=== PATIENT | female | born 1995 | race African-American/Black ===

== ENCOUNTER 2017-10-07 17:39 | Emergency (ER) | payer OTHER ==
[~2017-10-07] VITALS: Ht 152.4 cm; Wt 49.9 kg
[2017-10-07] MEDS ORDERED: HYDROCODONE-AP1 EAC6 PO (19:12)
[2017-10-07] MEDS ORDERED: IBUPROFEN 600600 M1 PO (19:12)
[2018-06-06] MEDS ORDERED: IRON325 PO (00:02)
[2018-06-06] MEDS ORDERED: MACROBID 100 M100 M1 PO (00:02)
[2018-06-06] MEDS ORDERED: MOBIC7.5 MG PO (00:02)
== END 2017-10-07 19:15 | disposition home or self-care (01) ==
LOC: ER 17:39
DX: T14.8XXA Other injury of unspecified body region, initial encounter (principal); W22.8XXA Striking against or struck by other objects, initial encounter; Y93.89 Activity, other specified; Y92.89 Other specified places as the place of occurrence of the external cause; Y99.8 Other external cause status

== ENCOUNTER 2017-12-01 15:42 | Emergency (ER) | payer OTHER ==
[~2017-12-01] VITALS: Ht 152.4 cm; Wt 49.9 kg
--- NOTE | ~2017-12-01 | EKG ---
[address] [address] [place] [address] ELECTROCARDIOGRAM REPORT Name: CARMEN PAREDES Room #: [facility] Gina#: [id number] Admission: 12/01/17 Attend Phys: Discharge: 12/01/17 Date of : [birth year] Report #: [id number] THIS REPORT FOR: //name// [facility] ED Test Date: 2017-12-01 Test Time: 16:14:31 Pat Name: CARMEN PAREDES Department: Room: Gender: F [employer] Machine: MZOOK : 1995 Requested By: Batool Jean Order Number: [id number] MD: Rip Vergara Measurements Intervals [place] Rate: 100 P: 49 VA: 162 QRS: 36 QRSD: 83 T: 40 QT: 321 QTc: 414 Interpretive Statements Sinus tachycardia RSR' in V1 or V2, probably normal variant No previous ECG available for comparison Electronically Signed On 12-02-2017 8:08:52 [employer] by Rip Vergara [email or web address] <ELECTRONICALLY SIGNED> By: Rip Vergara MD, [facility] 12/02/17 0808 1614 1614 Rip Vergara MD, FACC /EPI
[~2017-12-01 15:42] MED LIST: HYDROCODONE-AP1 EAC6 PO; IBUPROFEN 600600 M1 PO
[2017-12-01] MEDS ORDERED: BAYER CHEWABLE81 MG PO (15:47)
[2017-12-01] MEDS ORDERED: IBUPROFEN 400400 M2 PO (15:47)
[2017-12-01] MEDS ORDERED: BUTALB-APAP-CA1 EACH PO (16:43)
[2018-06-06] MEDS ORDERED: IRON325 PO (00:02)
[2018-06-06] MEDS ORDERED: MOBIC7.5 MG PO (00:02)
[2018-06-06] MEDS ORDERED: MACROBID 100 M100 M1 PO (00:02)
== END 2017-12-01 16:52 | disposition home or self-care (01) ==
LOC: ER 15:42
DX: S60.417A Abrasion of left little finger, initial encounter (principal); S09.90XA Unspecified injury of head, initial encounter; G89.29 Other chronic pain; R07.9 Chest pain, unspecified; Z88.0 Allergy status to penicillin; W01.0XXA Fall on same level from slipping, tripping and stumbling without subsequent striking against object, initial encounter; Y93.89 Activity, other specified; Y92.89 Other specified places as the place of occurrence of the external cause; Y99.8 Other external cause status

== ENCOUNTER 2018-01-15 22:27 | Emergency (ER) | payer OTHER ==
[~2018-01-15] VITALS: Ht 152.4 cm; Wt 49.9 kg
[~2018-01-15 22:27] MED LIST changes: +BAYER CHEWABLE81 MG PO; +BUTALB-APAP-CA1 EACH PO; +IBUPROFEN 400400 M2 PO
[2018-01-15 23:08] LABS: URINE BILIRUBIN NEGATIVE (Negative); URINE BLOOD 3+ (Negative); URINE CLARITY CLOUDY; URINE COLOR YELLOW; URINE GLUCOSE-RANDOM* NEGATIVE (Negative); URINE KETONES 1+ (Negative); URINE LEUKOCYTES-REFLEX NEGATIVE (Negative); URINE NITRITE-REFLEX NEGATIVE (Negative); URINE PROTEIN (DIPSTICK) TRACE (Negative); URINE SPECIFIC GRAVITY >= 1.030 (1.005-1.035); URINE UROBILINOGEN 0.2 E.U./dl (0.2-1.0)
[2018-01-15 23:09] LABS: ABSOLUTE NEUTROPHILS 3.2 thou/uL (1.4-8.2); BASOPHILS 2.5 % (0.0-2.0); HEMATOCRIT 30.3 % (37.0-47.0); HEMOGLOBIN 9.5 gm/dL (12.0-15.0); LYMPHOCYTES 27.9 % (24.0-44.0); MCH 21.1 pg (26.0-34.0); MCHC 31.2 g/dL (28.0-37.0); MCV 67.6 fL (80.0-100.0); MONOCYTES 7.5 % (1.0-8.0); PLATELET COUNT 292 thou/uL (150-400); POLYS 60.1 % (36.0-66.0); RBC 4.48 mil/uL (4.20-5.00); RDW 18.6 % (10.5-14.5); WBC 5.3 thou/uL (4.0-11.0)
[2018-01-15 23:15] LABS: CALCIUM 9.2 mg/dL (8.5-10.1); CREATININE 0.7 mg/dL (0.6-1.0); POTASSIUM 3.6 mmol/L (3.5-5.1)
[2018-01-15 23:20] LABS: SQUAMOUS 4-10 Moderate /LPF (0-3)
[2018-01-15 23:21] LABS: CASTS None Seen /LPF (None Seen); CRYSTALS None Seen /LPF (None Seen); URINE RBC >20 Many /HPF (0-2); URINE WBC-REFLEX 0-5 Rare /HPF (0-5)
[2018-01-16] MEDS ORDERED: MOBIC15 MG PO (00:42)
[2018-01-16 00:48] VITALS: BP 124/82
[2018-01-16 02:51] LABS: ANISOCYTOSIS 3+; HYPOCHROMASIA SLIGHT; LARGE PLATELETS OCCASIONAL; OVALOCYTES OCCASIONAL; POLYCHROMASIA OCCASIONAL
[2018-01-17 13:13] LABS: NEISSERIA GONORRHEA-PCR Negative (Negative)
== END 2018-01-16 00:49 | disposition home or self-care (01) ==
LOC: ER 22:27
PROVIDERS: Emergency Medicine
DX: R10.2 Pelvic and perineal pain (principal)

== ENCOUNTER 2018-09-24 22:28 | Emergency (ER) | payer OTHER ==
[~2018-09-24] VITALS: Ht 160 cm; Wt 49.0 kg
[~2018-09-24 22:28] MED LIST changes: +IRON325 PO; +MACROBID 100 M100 M1 PO; +MOBIC15 MG PO; +MOBIC7.5 MG PO
[2018-09-24] MEDS ORDERED: BUTALB-APAP-CA1 EACH PO (23:57)
[2018-09-25 00:36] VITALS: BP 101/71
== END 2018-09-25 00:38 | disposition home or self-care (01) ==
LOC: ER 22:28
DX: G44.209 Tension-type headache, unspecified, not intractable (principal); Z88.0 Allergy status to penicillin

== ENCOUNTER 2019-06-16 20:02 | Emergency (ER) | payer OTHER ==
[~2019-06-16] VITALS: Ht 160 cm; Wt 46.3 kg
[2019-06-16 22:30] VITALS: BP 112/86
== END 2019-06-16 22:30 | disposition home or self-care (01) ==
LOC: ER 20:02
DX: Z32.02 Encounter for pregnancy test, result negative (principal); Z88.0 Allergy status to penicillin